=== PATIENT | male | born 1960 | race Two or more races ===

== ENCOUNTER 2017-04-24 08:10 | Emergency (ER) | payer MEDICAID ==
[~2017-04-24] VITALS: Ht 165.1 cm; Wt 122.5 kg
[~2017-04-24 08:10] MED LIST: IBUP-51 GT; [UNRECOGNIZED DRUG - REMARK]
[2017-04-24 08:21] VITALS: BP 158/85
[2017-04-24] MEDS ORDERED: DEXAMETHASONE SOD PHOSPHATE 10 MG/ML VIAL ONE (08:48)
[2017-04-24] MEDS ORDERED: ALBUTEROL FS 2.5 MG/0.5 ML VIAL.NEB ONE (08:48)
[2017-04-24] MEDS ORDERED: HYDROCODONE BIT/HOMATROPINE 5 ML UDC ONE (08:49)
[2017-04-24] MEDS: HYDROCODONE BIT/HOMATROPINE 5 ML UDC PO ONE (08:59)
[2017-04-24] MEDS: DEXAMETHASONE SOD PHOSPHATE 4 MG/ML VIAL IM ONE (08:59)
[2017-04-24] MEDS: BENZONATATE 100 MG CAPSULE PO PRN (08:59)
[2017-04-24] MEDS: ALBUTEROL FS 2.5 MG/0.5 ML VIAL.NEB NEB ONE (08:59)
== END 2017-04-24 09:26 | disposition home or self-care (01) ==
LOC: ER 08:11
DX: J06.9 Acute upper respiratory infection, unspecified (principal); Z88.0 Allergy status to penicillin
CPT/HCPCS: 71020-TC; A4606; J1100; Z7610

== ENCOUNTER 2017-11-21 19:41 | Emergency (ER) | payer MEDICAID ==
[~2017-11-21] VITALS: Ht 170.2 cm; Wt 117.9 kg
--- NOTE | 2017-11-21 20:00 | NUR ---
PT BB SELF FROM HOME WITH C/O CHEST DISCOMFORT X 3 WEEKS. PT STATES HE IS HERE FOR WEAKNESS, SICK X 3 WEEKS, DRY MOUTH, PENILE ITCHING WELL. PT DENIES RADIATION OF CHEST PAIN. PT STATES PAIN IS 4/10 BUT TOLERABLE. PT IS AAOX4. RESP EVEN AND UNLABORED. SKIN WNL. VSS. PT GOWNED AND PLACED ON MONITOR AND POX. AWAITING MD FOR EVAL.
[2017-11-21] MEDS ORDERED: IV NS 0.9% 1,000 ML BAG IV ONE (20:30)
--- NOTE | 2017-11-21 21:38 | NUR ---
ASSUMED D/C CARE AT THIS TIME ON BEHALF OF PRIMARY NURSE ЕЛЕНА. Patient discharged to home in stable condition. Written and verbal after care instructions given. Patient verbalizes understanding of instruction. Ambulatory with a steady gait accompanied by s/o.
[2017-11-21 21:39] VITALS: BP 153/90
== END 2017-11-21 21:40 | disposition home or self-care (01) ==
LOC: ER 19:42
DX: J06.9 Acute upper respiratory infection, unspecified (principal); N48.89 Other specified disorders of penis; I10 Essential (primary) hypertension; Z88.0 Allergy status to penicillin
CPT/HCPCS: 71045-TC; A4606; J7030; Z7610

== ENCOUNTER 2017-12-22 10:58 | Emergency (ER) | payer MEDICAID ==
[~2017-12-22] VITALS: Ht 170.2 cm; Wt 117.9 kg
--- NOTE | 2017-12-22 11:11 | NUR ---
HEADACHE/DIZZINESS AND ON & OFF, NUMBNESS OF LEFT HAND X 4 DAYS,
[2017-12-22] MEDS ORDERED: IV NS 0.9% 500 ML BAG IV ONE (11:30)
[2017-12-22 11:34] LABS: BASOPHILS % (AUTO) 0.5 % (0.0-2.0); EOSINOPHILS % (AUTO) 1.2 % (0.0-6.0); HEMATOCRIT 48 % (39-51); HEMOGLOBIN 16.8 g/dL (13.5-17.5); LYMPHOCYTES # (AUTO) 2.3 /CMM (0.8-4.8); LYMPHOCYTES % (AUTO) 23.7 % (20.0-44.0); MEAN CORPUSCULAR HGB CONC 35 g/dl (31.0-36.0); MEAN CORPUSCULAR VOLUME 83 fL (80-96); MONOCYTES # (AUTO) 0.5 /CMM (0.1-1.30); MONOCYTES % (AUTO) 5.2 % (2.0-12.0); NEUTROPHILS % (AUTO) 69.4 % (43.0-81.0); PLATELET COUNT (AUTO) 211 /CMM (150-450); RDW COEFFICIENT OF VARIATION 12.6 (11.5-15.0); RED BLOOD CELL COUNT(AUTO) 5.79 MIL/uL (4.5-6.0); WHITE BLOOD COUNT (AUTO) 9.9 K/uL (4.3-11.0)
[2017-12-22 11:57] LABS: ALANINE AMINOTRANSFERASE 27 U/L (12-78); ALBUMIN 4.2 g/dL (3.4-5.0); ALKALINE PHOSPHATASE 120 U/L (46-116); ASPARTATE AMINOTRANSFERASE 8 U/L (15-37); BILIRUBIN,DIRECT 0.1 mg/dL (0.0-0.2); BILIRUBIN,TOTAL 0.5 mg/dL (0.2-1.0); CALCIUM, SERUM 9.4 mg/dL (8.5-10.1); CARBON DIOXIDE 26 mmol/L (21-32); CHLORIDE 97 mmol/L (98-107); INR 0.93 (0.85-1.15); SODIUM SERUM 134 mmol/L (136-145); TOTAL PROTEIN, SERUM 8.8 g/dL (6.4-8.2); UREA NITROGEN, BLOOD 15 mg/dL (7-18)
[2017-12-22 11:59] LABS: TROPONIN I < 0.017 ng/mL (0.00-0.056)
[2017-12-22 12:00] LABS: GLUCOSE 361 mg/dL (74-106)
[2017-12-22 12:57] VITALS: BP 129/75
--- NOTE | 2017-12-22 12:59 | NUR ---
Patient discharged to home in stable condition. Written and verbal after care instructions given. Patient verbalizes understanding of instruction. IV removed. Catheter intact and site benign. Pressure and 4x4 applied to site. No bleeding noted. Prescription given.
== END 2017-12-22 13:00 | disposition home or self-care (01) ==
LOC: ER 11:01
DX: E11.9 Type 2 diabetes mellitus without complications (principal); I10 Essential (primary) hypertension; I70.0 Atherosclerosis of aorta; Z87.891 Personal history of nicotine dependence; Z88.0 Allergy status to penicillin
CPT/HCPCS: 36415; 70450-TC; 71045-TC; 80048-TC; 80076-TC; 84484-TC; 85025-TC; 85730-TC; A4606; J7040; Z7610

== ENCOUNTER 2019-07-02 08:31 | Emergency (ER) | payer MEDICAID ==
[~2019-07-02] VITALS: Ht 170.2 cm; Wt 123.8 kg
--- NOTE | 2019-07-02 08:40 | NUR ---
DIZZINESS, HEADACHE AND BLURRING OF VISION X 3 DAYS. PATIENT A/OX4, BREATHING EVEN AND UNLABORED, NO SOB NOTED. CHANGED INTO GOWN, ATTACHED TO THE MANAGER REIMBURSEMENT. NEEDS ATTENDED. WILL CONTINUE TO MONITOR.
--- NOTE | 2019-07-02 08:48 | NUR ---
DR. LAURENT AT BEDSIDE FOR EVAL.
[2019-07-02] MEDS ORDERED: ONDANSETRON HCL/PF 4 MG/2 ML VIAL IVP ONE (09:00)
[2019-07-02] MEDS ORDERED: IV NS 0.9% 1,000 ML BAG IV ONE (09:00)
[2019-07-02] MEDS ORDERED: MECLIZINE HCL 12.5 MG TABLET PO ONE (09:00)
[2019-07-02] MEDS ORDERED: ONDANSETRON HCL/PF 4 MG/2 ML VIAL ONE (09:04)
[2019-07-02] MEDS ORDERED: MECLIZINE HCL 25 MG TABLET ONE (09:04)
[2019-07-02 09:16] LABS: BASOPHILS # (AUTO) 0.1 /CMM (0.0-0.2); EOSINOPHILS % (AUTO) 1.7 % (0.0-6.0); HEMATOCRIT 46 % (39-51); HEMOGLOBIN 15.6 g/dL (13.5-17.5); LYMPHOCYTES # (AUTO) 2.3 /CMM (0.8-4.8); LYMPHOCYTES % (AUTO) 25.2 % (20.0-44.0); MEAN CORPUSCULAR HGB CONC 34 g/dl (31.0-36.0); MEAN CORPUSCULAR VOLUME 86 fL (80-96); MONOCYTES # (AUTO) 0.6 /CMM (0.1-1.30); MONOCYTES % (AUTO) 6.8 % (2.0-12.0); NEUTROPHILS % (AUTO) 65.3 % (43.0-81.0); PLATELET COUNT (AUTO) 204 /CMM (150-450); RED BLOOD CELL COUNT(AUTO) 5.39 MIL/uL (4.5-6.0); WHITE BLOOD COUNT (AUTO) 9.1 K/uL (4.3-11.0)
[2019-07-02 09:22] LABS: CALCIUM, SERUM 8.8 mg/dL (8.5-10.1); CARBON DIOXIDE 27 mmol/L (21-32); CHLORIDE 102 mmol/L (98-107); CREATININE 0.8 mg/dL (0.6-1.3); GLUCOSE 136 mg/dL (74-106); POTASSIUM 4.1 mmol/L (3.5-5.1); SODIUM SERUM 135 mmol/L (136-145); UREA NITROGEN, BLOOD 13 mg/dL (7-18)
[2019-07-02 09:28] LABS: ALANINE AMINOTRANSFERASE 31 U/L (12-78); ALBUMIN 3.9 g/dL (3.4-5.0); ALKALINE PHOSPHATASE 74 U/L (46-116); ASPARTATE AMINOTRANSFERASE 16 U/L (15-37); BILIRUBIN,DIRECT 0.1 mg/dL (0.0-0.2); BILIRUBIN,TOTAL 0.4 mg/dL (0.2-1.0); TOTAL PROTEIN, SERUM 7.7 g/dL (6.4-8.2)
[2019-07-02 09:40] LABS: APPEARANCE,URINE Clear (CLEAR); BILIRUBIN,URINE Negative (NEGATIVE); BLOOD, URINE Trace-intact Ery/uL (NEGATIVE); COLOR,URINE Yellow (YELLOW); KETONES,URINE Negative (NEGATIVE); LEUKOCYTE ESTERASE ,URINE Negative (NEGATIVE); NITRITE, URINE Negative (NEGATIVE); PROTEIN,URINE Negative (NEGATIVE); UGLUCOSE Negative (NEGATIVE); UROBILINOGEN,URINE 0.2 EU/dL (0.2)
[2019-07-02 09:44] LABS: BACTERIA,URINE Rare /HPF (None Seen); RBC,URINE 0-2 /HPF (0-2); SQUAMOUS EPITHELIAL CELL,UR Rare /HPF (None Seen); WBC,URINE 0-2 /HPF (0-3)
[2019-07-02] MEDS ORDERED: CT SWABBABLE VALVE TRANS SET 1 EA INFUS.SET MC ONE (09:46)
[2019-07-02] MEDS ORDERED: IOHEXOL-300 100 ML VIAL IV ONE (09:46)
[2019-07-02] MEDS ORDERED: IV NS 0.9% 250 ML IV ONE (09:46)
[2019-07-02 11:10] VITALS: BP 118/76
== END 2019-07-02 11:12 | disposition home or self-care (01) ==
LOC: ER 08:32
DX: I10 Essential (primary) hypertension (principal); R42 Dizziness and giddiness; E11.9 Type 2 diabetes mellitus without complications; Z88.0 Allergy status to penicillin; Z87.891 Personal history of nicotine dependence
CPT/HCPCS: 36415; 70450; 71045; 71260; 80048; 80076; 81001; 84484; 85025; 93005; 96361; 96374; 99284; J2405; J7030 ×2; J7050; J8597; Q9967; 81000-TC

== ENCOUNTER 2023-08-26 02:42 | Emergency (ER) | payer MEDICAID, OTHER ==
[~2023-08-26] VITALS: Ht 170.2 cm; Wt 110.2 kg
[2023-08-26 03:24] LABS: BASOPHILS # (AUTO) 0.1 K/uL (0.0-0.2); EOSINOPHILS # (AUTO) 0.1 K/uL (0.0-0.7); EOSINOPHILS % (AUTO) 1.1 % (0.0-6.0); HEMATOCRIT 46 % (39-51); LYMPHOCYTES # (AUTO) 1.8 K/uL (0.8-4.8); LYMPHOCYTES % (AUTO) 15.2 % (20.0-44.0); MEAN CORPUSCULAR HEMOGLOBIN 28 PG (26.0-33.0); MEAN CORPUSCULAR HGB CONC 33 g/dl (31.0-36.0); MEAN CORPUSCULAR VOLUME 84 fL (80-96); MONOCYTES # (AUTO) 0.6 K/uL (0.1-1.30); MONOCYTES % (AUTO) 5.4 % (2.0-12.0); NEUTROPHILS # (AUTO) 9.1 K/uL (1.8-8.9); NEUTROPHILS % (AUTO) 77.3 % (43.0-81.0); PLATELET COUNT (AUTO) 182 K/uL (150-450); RED BLOOD CELL COUNT(AUTO) 5.45 MIL/uL (4.5-6.0); RED CELL DISTRIBUTION WIDTH 14.7 % (11.5-15.0); WHITE BLOOD COUNT (AUTO) 11.8 K/uL (4.3-11.0)
[2023-08-26 03:33] LABS: MAGNESIUM 2.1 mg/dL (1.8-2.4)
[2023-08-26] MEDS ORDERED: IOHEXOL-350 100 ML VIAL IV ONE (03:37)
[2023-08-26 03:38] LABS: CALCIUM, SERUM 8.6 mg/dL (8.5-10.1); CARBON DIOXIDE 26 mmol/L (21-32); CHLORIDE 101 mmol/L (98-107); CREATININE 0.9 mg/dL (0.6-1.3); D-DIMER 0.34 mg/L(FEU (0.17-0.50); GLUCOSE 183 mg/dL (74-106); INR 1.04 (0.91-1.10); PARTIAL THROMBOPLASTIN TIME 28.7 SEC (24.3-34.3); POTASSIUM 3.8 mmol/L (3.5-5.1); SODIUM SERUM 136 mmol/L (136-145); UREA NITROGEN, BLOOD 17 mg/dL (7-18)
[2023-08-26] MEDS ORDERED: CT SWABBABLE VALVE TRANS SET 1 EA INFUS.SET MC ONE (03:38)
[2023-08-26] MEDS ORDERED: IV NS 0.9% 250 ML IV ONE (03:38)
[2023-08-26 03:47] LABS: NT-PRO BNP 814 pg/mL (0-125)
[2023-08-26 03:48] LABS: THYROID STIMULATING HORMONE 1.95 uIU/mL (0.358-3.74)
[2023-08-26] MEDS ORDERED: IV NS 0.9% 1,000 ML BAG IV ONE (06:00)
[2023-08-26] MEDS ORDERED: FUROSEMIDE 40 MG/4 ML VIAL IV ONE (08:00)
[2023-08-26] MEDS ORDERED: FUROSEMIDE 40 MG/4 ML VIAL ONE (08:22)
[2023-08-26] MEDS ORDERED: ACETAMINOPHEN ES 500 MG TABLET PO ONE (18:30)
[2023-08-26] MEDS ORDERED: ACETAMINOPHEN ES 500 MG TABLET ONE (18:32)
[2023-08-26 21:06] VITALS: BP 144/74; TEMP 97.6; O2SAT 98
== END 2023-08-26 21:07 | disposition short-term general hospital (02) ==
LOC: ER 02:45
DX: R07.89 Other chest pain (principal); R00.2 Palpitations; I10 Essential (primary) hypertension; E11.9 Type 2 diabetes mellitus without complications; Z79.899 Other long term (current) drug therapy; Z20.822 Contact with and (suspected) exposure to COVID-19; Z88.0 Allergy status to penicillin
CPT/HCPCS: 99291; 96374; 71275; 71045; 96361; 87426; 93005; 87804 ×2; 85025; 80048; 83735; 85378; 36415; 84439; 84443; 84484 ×2; 85730; 83880; 82962 ×2; J1940; J7050; J7040; Q9967; C9803

== ENCOUNTER 2025-04-25 11:56 | Emergency (ER) | payer MEDICAID, OTHER ==
[~2025-04-25] VITALS: Ht 165.1 cm; Wt 108.9 kg
[2025-04-25 12:04] VITALS: BP 148/82; TEMP 98.2
[2025-04-25] MEDS ORDERED: KETO5DRO72 EACHEYE (12:14)
[2025-04-25 12:46] VITALS: O2SAT 94
== END 2025-04-25 12:46 | disposition home or self-care (01) ==
LOC: ER 11:56
DX: H10.11 Acute atopic conjunctivitis, right eye (principal); I10 Essential (primary) hypertension; E11.9 Type 2 diabetes mellitus without complications; Z87.891 Personal history of nicotine dependence; Z88.0 Allergy status to penicillin; Z79.899 Other long term (current) drug therapy